=== PATIENT | male | born 1980 | race Caucasian/White ===

== ENCOUNTER 2021-11-28 19:02 | Emergency (ER) | payer SELFPAY ==
[2021-11-28 19:16] VITALS: BP 143/90; PULSE 122; RESP 18; TEMP 37.1; O2SAT 98
--- NOTE | 2021-11-28 19:16 | ED_ITS ---
HPI - General Adult General Chief complaint: Skin/Abscess/Foreign Body Stated complaint: rash History of Present Illness HPI narrative: Pt is a 41 y/o CM who presents to the [facility] via pov for an evaluation of a skin problem to back of head that has been present since Tuesday. Additionally, he reports nausea approx 2 days day ago although this sx has since resolved. He reports the area to be painful and draining. No improvement after using iodine, Neosporin and peroxide. Related Data Home Medications Medication Instructions Recorded Confirmed No Home Medications 11/28/21 11/28/21 Allergies Allergy/AdvReac Type Severity Reaction Status Date / Time egg Allergy Unknown Verified 11/28/21 19:28 latex Allergy Unknown Verified 11/28/21 19:28 Review of Systems Review of Systems: Denies injury. Pertinent negatives fever, chills, sweats, malaise, poor p.o. intake, change in appetite, headache, LOC, dizziness, streaking, numbness, tingling, loss of sensation, foreign body sensation, deformity, sob, chest pain, and heart palpitations/murmurs. PMFSH Comments I have reviewed and agree with the patient's past medical, surgical, social, and family hx as documented by the RN. There is no relevant family history pertinent to the presenting complaint. Exam Narrative: GENERAL: Well-appearing, well-nourished, and in no acute distress. HEAD: Normocephalic, atraumatic. 11 x 7 cm abscess with moderate surrounding cellulitis. Abscess is drainage a small amount of purulent drainage. EYES: PERRLA and EOMI. No evidence of erythema, swelling, or drainage. ENT: Nares clear, no rhinorrhea or epistaxis.Mucous membranes moist and pink. Uvula is midline without erythema and swelling. No evidence of obstruction, petechial rash, cobblestoning, lesions, ulcers, erythema, swelling, exudates, peritonsillar abscess, tenting, or drooling. Breath odor and voice normal. NECK: Supple. No Lymphadenopathy or nuchal rigidity appreciated. CHEST: Bilateral lung guaman are clear to auscultation. No respiratory distress. No evidence of cough or pleuritic cp upon examination. HEART: Tachycardia with rate of 122. Regular rhythm. No murmur, gallop, or rub heard. EXTREMITIES: Normal range of motion. No edema. SKIN: Warm, dry. NEURO: No focal deficits. Alert and oriented x3. Course Course Emergency Course: The patient/guardian displays adequate decision making capability and despite a detailed discussion of alternatives, benefits, risks, and consequences refuses EMS transport to ER. Will transport via POV. Level of Care: Express Care Visit Transfer Transfered to: [facility] Transportation: Other (Privately owned vehicle) Transfer rationale: Higher level of care?rule out sepsis Accepting physician: Pablo Perales APRN Transfer comments: All questions answered. Patient stable at time of transfer. Medical Decision Making Differential Diagnosis Differential Diagnosis: Contact/allergic dermatitis, atopic dermatitis, psoriasis, cellulitis, tinea infection, parasite infection, shingles Vital Signs Vital Signs: Reviewed Critical Care Time Critical Care Time Critical Care Time: Yes Total Critical Care Time: 10 Discharge Plan Discharge Follow-up/Referrals: PHYSICIAN,[employer] [Primary Care Provider] -
== END 2021-11-28 19:30 | disposition short-term general hospital (02) ==
PROVIDERS: Emergency Provider Nurse Practitioner Family
DX: L03.811 Cellulitis of head [any part, except face] (principal)
CPT/HCPCS: 99202; G0463

== ENCOUNTER 2021-11-28 19:59 | Emergency (ER) | payer SELFPAY ==
--- NOTE | ~2021-11-28 | CT_ITS ---
EXAMINATION: CT cervical spine wo con DATE: 11/28/2021 23:03 INDICATION: posterior scalp abscess TECHNIQUE: Computed tomography (CT) of the cervical spine was performed without intravenous contrast. Automated exposure control and iterative reconstruction technique were employed. The dose-length pro duct was 526.92 mGy-cm. COMPARISON: None FINDINGS: Vertebral Body Alignment: Intact. Craniocervical and atlantoaxial alignment: No significant degenerative change. Alignment intact. Osseous structures/fracture: No evidence of a lytic or blastic process in the visualized spine. No e vidence of acute fracture. Cervical soft tissues: Subcutaneous fat induration in the posterior occipital and suboccipital scalp. No subcutaneous emphysema. No definite fluid collection. No deep osseous involvement. Cervical lymph adenopathy. Degenerative changes: No significant degenerative changes. IMPRESSION: No acute fracture or traumatic malalignment in the cervical spine. Occipital/suboccipital cellulitis. Cervical lymphadenopathy. No noncontrast CT evidence of abscess, noting that abscess/phlegmon cannot be entirely excluded. Reviewed, dictated and finalized at [facility]. IMPRESSION: No acute fracture or traumatic malalignment in the cervical spine. Occipital/zambrano boccipital cellulitis. Cervical lymphadenopathy. No noncontrast CT evidence of abscess, noting that abscess/phlegmon cannot be entirely excluded.
--- NOTE | ~2021-11-28 | CT_ITS ---
EXAMINATION: CT brain wo con DATE: 11/28/2021 23:04 INDICATION: Posterior cutaneous abscess. Fever. TECHNIQUE: Computed tomography (CT) of the head was performed without intravenous contrast. The mA wa s adjusted according to patient size. Iterative reconstruction technique was employed. Exam dose: 60 5.33 mGy-cm total exam DLP. COMPARISON: None FINDINGS: No intracranial mass lesion or hemorrhage or cerebrovascular accident. No midline shift or mass effect effect. Normal ventricular size. No subdural or epidural hematoma. There is prominent subcutaneous soft tissue stranding in the occipital scalp area; no fluid collectio n or drainable abscess is evident. No fracture or bone destruction of the cranial vault. Included paranasal sinuses and mastoid air cell s are unremarkable. No skull fracture or bone destruction. IMPRESSION: Prominent posterior occipital scalp subcutaneous edema and/or inflammation consistent wi th cellulitis; no abscess cavity identified No skull fracture or bone destruction or significant intracranial abnormality Reviewed, dictated and finalized at [facility]. Reviewed, dictated and finalized at [facility]. IMPRESSION: Prominent posterior occipital scalp subcutaneous edema and/or infl ammation consistent with cellulitis; no abscess cavity identified No skull fracture or bone destruction or significant intracranial abnormality
[2021-11-28 20:05] VITALS: BP 155/79; PULSE 97; RESP 18; TEMP 38.9; O2SAT 100
--- NOTE | 2021-11-28 20:16 | ED.WOUNDLAC ---
HPI - Wound/Laceration General Chief Complaint: Wound/Laceration Stated Complaint: Wound On Head Time Seen by Provider: 11/28/21 20:05 History of Present Illness HPI narrative: 41-year-old male presents to the emergency room from a local urgent care for evaluation of a draining abscess to the back of his head. Patient states he noticed a bite or a rash to his posterior scalp 4 days ago, has since been itching it. Noticed this morning the area became much larger and more painful and began to drain. Patient states the area is foul-smelling. Has since developed a fever. Related Data Allergies Allergy/AdvReac Type Severity Reaction Status Date / Time egg Allergy Unknown Verified 11/28/21 19:28 latex Allergy Unknown Verified 11/28/21 19:28 Review of Systems Review of Systems: CONSTITUTIONAL: Denies fever, chills, or sweats. EYES: Denies visual changes, redness, or discharge. ENT: Denies rhinorrhea, congestion, sore throat, or otalgia. CARDIOVASCULAR: Denies chest pain, palpitations, or edema. RESPIRATORY: Denies cough or dyspnea. GASTROINTESTINAL: Denies abdominal pain, nausea, vomiting, or diarrhea. GENITOURINARY: Denies dysuria or hematuria. SKIN: Reports abscess to posterior scalp MUSCULOSKELETAL: Denies back pain, joint pain, or myalgia. NEUROLOGIC: Denies headache, numbness, dizziness, or weakness. PSYCHIATRIC: Denies anxiety or depression. Exam Narrative: GENERAL: Well-appearing, well-nourished, no physical limitations, and in no acute distress. HEAD: Normocephalic, atraumatic. EYES: Conjunctivae normal, PERRLA and EOMI. NECK: Supple. No meningeal signs. No adenopathy or masses. CHEST: Clear to auscultation. No respiratory distress. No wheezes rales or rhonchi. No tenderness. HEART: Regular rate and rhythm. No murmur heard. Normal peripheral pulses. EXTREMITIES: Normal range of motion. No edema. No clubbing or cyanosis SKIN: Posterior scalp: 10 x 6 cm foul-smelling purulent drainage with surrounding erythema, + alopecia NEURO: No focal deficits. Alert and oriented x3. MAEW. CN's II-XI intact bilaterally, normal gait PSYCH: Cooperative. Normal mood and affect. Also Course Vital Signs Vital signs: Vital Signs Temperature 38.9 C H 08/06/22 20:05 Pulse Rate 97 11/28/21 20:05 Respiratory Rate 18 11/28/21 20:05 Blood Pressure 155/79 H 11/28/21 20:05 Pulse Oximetry 100 11/28/21 20:05 Oxygen Delivery Room Air 11/28/21 20:05 Temperature 38.6 C H 11/29/21 00:30 Pulse Rate 97 11/28/21 20:05 Respiratory Rate 18 11/28/21 20:05 Blood Pressure 155/79 H 11/28/21 20:05 Pulse Oximetry 100 11/28/21 20:05 Oxygen Delivery Room Air 11/28/21 20:05 MDM - Wound/Laceration Lab Data Result diagrams: 11/28/21 20:50 11/28/21 20:50 Labs: Lab Results 11/28/21 11/28/21 11/28/21 Range/Units 20:50 20:50 20:50 WBC 19.3 H (4.5-10.0) K/mm3 RBC 4.98 (4.6-6.20) M/mm3 Hgb 13.9 L (14.0-18.0) g/dL Hct 42.8 (42.0-52.0) % MCV 85.9 (80-100) fl MCH 27.9 (26-34) pg MCHC 32.5 (32-36) g/dl RDW 13.0 (11.5-14.5) % Plt Count 317 (150-375) k/mm3 MPV 9.0 (7.4-10.4) fl Immature Gran % (Auto) 0.4 (0-0.5) % Neut % (Auto) 86.1 H (45.5-73.1) % Lymph % (Auto) 4.7 L (18.3-44.2) % [place] % (Auto) 6.9 (2.6-8.5) % Eos % (Auto) 1.5 (0-4.4) % Baso % (Auto) 0.4 (0.2-1.2) % Lymph # (Auto) 0.91 (0.9-3.2) K/mm3 [place] # (Auto) 1.3 H (0.1-0.6) K/mm3 Eos # (Auto) 0.3 (0-0.3) K/mm3 Baso # (Auto) 0.1 (0.0-0.1) K/mm3 Abs Immat Gran (auto) 0.08 H (0.00-0.031) K/mm3 Absolute Neuts (auto) 16.6 H (1.3-6.7) K/mm3 Absolute Nucleated RBC 0.0 (0.0-0.012) K/mm3 Nucleated RBC % 0.0 (0.0-0.2) % Sodium 134 L (137-145) mmol/L Potassium 4.0 (3.4-5.0) mmol/L Chloride 99 (98-107) mmol/L Carbon Dioxide 24 (22-30) mmol/L Anion Gap 11 (8-16) mmol/L BUN 19 (9-20) mg/dL
[2021-11-28] MEDS: ACETAMINOPHEN 500 MG TABLET 1000 MG PO (20:31)
[2021-11-28] MEDS: SODIUM CHLORIDE 0.9% IV 1,000 ML 999 ML IV CONT (20:47)
[2021-11-28 21:05] LABS: Basophils Absolute Auto 0.1 K/mm3 (0.0-0.1); Basophils Percent Auto 0.4 % (0.2-1.2); Eosinophils Absolute Auto 0.3 K/mm3 (0-0.3); Eosinophils Percent Auto 1.5 % (0-4.4); Hematocrit 42.8 % (42.0-52.0); Hemoglobin 13.9 g/dL (14.0-18.0); Immature Granulocyte Absolute 0.08 K/mm3 (0.00-0.031); Immature Granulocyte Percent A 0.4 % (0-0.5); Lymphocytes Absolute Auto 0.91 K/mm3 (0.9-3.2); Lymphocytes Percent Auto 4.7 % (18.3-44.2); Mean Corpuscular HGB Conc 32.5 g/dl (32-36); Mean Corpuscular Hemoglobin 27.9 pg (26-34); Mean Corpuscular Volume 85.9 fl (80-100); Monocytes Absolute Auto 1.3 K/mm3 (0.1-0.6); Monocytes Percent Auto 6.9 % (2.6-8.5); Neutrophils Absolute Auto 16.6 K/mm3 (1.3-6.7); Neutrophils Percent Auto 86.1 % (45.5-73.1); Platelet Count Result 317 k/mm3 (150-375); Red Blood Count 4.98 M/mm3 (4.6-6.20); White Blood Count 19.3 K/mm3 (4.5-10.0)
[2021-11-28 21:26] LABS: Lactic Acid Reflex 1.1 mmol/L (0.7-2.0)
[2021-11-28 21:27] LABS: Alanine Aminotransferase 94 U/L (6-50); Albumin Level 4.6 g/dL (3.5-5.1); Alkaline Phosphatase 109 U/L (38-126); Anion Gap 11 mmol/L (8-16); Aspartate Amino Transferase 43 U/L (17-59); Blood Urea Nitrogen 19 mg/dL (9-20); Carbon Dioxide 24 mmol/L (22-30); Chloride 99 mmol/L (98-107); Estimated CRCL calculation 102 ml/min; Estimated Glomerular Filt Rate > 60; Glucose 138 mg/dL (65-110); Sodium 134 mmol/L (137-145)
[2021-11-28 21:46] VITALS: TEMP 38.1
[2021-11-28 21:58] VITALS: TEMP 38.1
[2021-11-28 23:00] VITALS: TEMP 37.9
[2021-11-29] MEDS: fentaNYL CITRATE INJ (*CRX) 100 MCG/2 ML VIAL 50 MCG IV PUSH (00:23)
[2021-11-29 00:27] VITALS: O2SAT 98
[2021-11-29 00:29] VITALS: BP 122/77; O2SAT 97
[2021-11-29 00:30] VITALS: TEMP 38.6; O2SAT 98
[2021-11-29 00:46] VITALS: O2SAT 100
[2021-11-29] MEDS: IBUPROFEN 400 MG TABLET 800 MG PO (00:58)
[2021-11-29 01:00] VITALS: BP 114/72; O2SAT 100
[2021-11-29 01:01] VITALS: O2SAT 99
== END 2021-11-29 01:23 | disposition home or self-care (01) ==
PROVIDERS: Emergency Provider Nurse Practitioner Family
DX: B35.0 Tinea barbae and tinea capitis (principal)
CPT/HCPCS: 36415; 70450; 72125; 80053; 83605; 85025; 87040; 87070; 87147; 87186; 87205; 96361; 96365; 96375; 99284; A9270; J0690; J3010; J7030